=== PATIENT | female | born 1985 | race Two or more races ===

== ENCOUNTER 2021-12-11 04:14 | Day surgery (SDC) | payer OTHER ==
[2021-12-07 10:46] VITALS: BMI 31.2
[2021-12-11 09:41] LABS: BASO % 0.3 % (0-2.0); HEMATOCRIT 36.2 % (32.4-45.2); LYMPH % 27.5 % (8-40); MCH 27.6 pg (25.7-33.7); MCHC 33.2 g/dl (32.0-36.0); MEAN CELL VOLUME 83.1 fl (80-96); MEAN PLT VOLUME 7.3 fl (7.5-11.1); MONO % 6.1 % (3.8-10.2); NEUT % 65.1 % (42.8-82.8); PLATELET COUNT 268 10^3/uL (134-434); RBC 4.35 M/mm3 (3.60-5.2); RDW 13.7 % (11.6-15.6); WHITE BLOOD COUNT 8.2 K/mm3 (4.0-10.0)
[2021-12-11] MEDS ORDERED: INDOMETHACIN 50 MG CAPSULE PO ONE ×2 (13:15→13:35)
[2021-12-11] MEDS ORDERED: ONDANSETRON 4 MG/2 ML VIAL IVPUSH PRN (13:19)
[2021-12-11] MEDS ORDERED: ACETAMINOPHEN 1000 MG/100 ML BAG IVPB PRN (13:21)
[2021-12-11 15:02] VITALS: BP 110/73; PULSE 68; TEMP 97
== END 2021-12-11 19:15 | disposition home or self-care (01) ==
LOC: JASU-SURG 04:14
PROVIDERS: ATTEND Obstetrics & Gynecology Maternal & Fetal Medicine
PROC: 0UVC7ZZ Restriction of Cervix, Via Natural or Artificial Opening (ICD-10-PCS; principal; 2021-12-11 09:00)
DX: O34.31 Maternal care for cervical incompetence, first trimester (principal); Z3A.12 12 weeks gestation of pregnancy
CPT/HCPCS: 36415; 85025; 94760

== ENCOUNTER 2022-05-23 13:10 | Inpatient (IN) | payer OTHER ==
[2022-05-23 14:13] VITALS: BMI 36.6
[2022-05-23] MEDS ORDERED: BETAMET ACET/BETAMET NA PH 30 MG/5 ML VIAL ONE (14:34)
[2022-05-23] MEDS ORDERED: MAGNESIUM 4GM/H20 - 4 GM/100 ML IVPB IVPB ONE ×2 (14:35→14:40)
[2022-05-23 14:58] LABS: BASO % 0.3 % (0-2.0); EOS % 0.6 % (0-4.5); HEMATOCRIT 35.1 % (32.4-45.2); HEMOGLOBIN 12.1 GM/dL (10.7-15.3); LYMPH % 23.6 % (8-40); MCH 27.9 pg (25.7-33.7); MCHC 34.3 g/dl (32.0-36.0); MEAN CELL VOLUME 81.4 fl (80-96); MEAN PLT VOLUME 8.1 fl (7.5-11.1); NEUT % 67.5 % (42.8-82.8); PLATELET COUNT 249 10^3/uL (134-434); RBC 4.32 M/mm3 (3.60-5.2); RDW 13.9 % (11.6-15.6); WHITE BLOOD COUNT 9.7 K/mm3 (4.0-10.0)
[2022-05-23] MEDS ORDERED: MAGNESIUM SULFATE 20GM/500ML - 20 GM/500 ML INFUS.BAG ONE (15:05)
[2022-05-23] MEDS ORDERED: MAGNESIUM SULFATE 20GM/500ML - 20 GM/500 ML INFUS.BAG IVPB ONE ×2 (15:10→17:50)
[2022-05-23 15:14] LABS: ACTIVATED PTT 28.1 SECONDS (25.2-36.5); INR 1.03 (0.83-1.09); PROTHROMBIN TIME (PATIENT) 11.8 SEC (9.7-13.0)
[2022-05-23 15:17] LABS: BLOOD UREA NITROGEN 10.8 mg/dL (7-18); CALCIUM 8.4 mg/dL (8.5-10.1)
[2022-05-23 15:20] LABS: CREATININE 0.3 mg/dL (0.55-1.3)
[2022-05-23] MEDS ORDERED: BETAMET ACET/BETAMET NA PH 30 MG/5 ML VIAL IM ONE (17:15)
[2022-05-23] MEDS ORDERED: ELECTROLYTE-148 SOLN 1,000 ML IV SCH (17:50)
[2022-05-24] MEDS ORDERED: MAGNESIUM SULFATE 20GM/500ML - 20 GM/500 ML INFUS.BAG ONE (01:13)
[2022-05-24] MEDS ORDERED: MAGNESIUM 2GM/50ML STERILE WATER IVPB IVPB ONE (02:14)
[2022-05-24 12:30] VITALS: TEMP 97.9
[2022-05-24 14:13] VITALS: BP 103/54; PULSE 78
[2022-05-24] MEDS ORDERED: BETAMET ACET/BETAMET NA PH 30 MG/5 ML VIAL IM ONE (15:00)
== END 2022-05-24 15:13 | disposition home or self-care (01) | DRG 566 ==
LOC: JDEL 13:10 → JLDR 13:20
PROVIDERS: ADMIT Obstetrics & Gynecology Maternal & Fetal Medicine; ATTEND Obstetrics & Gynecology Maternal & Fetal Medicine
DX: O46.8X3 Other antepartum hemorrhage, third trimester (principal); Z3A.35 35 weeks gestation of pregnancy
CPT/HCPCS: 36415; 80048; 85025; 85610; 85730; 86780; 86850; 86900; 86901; 87086; 96372; C9803-CS; U0003; U0005

== ENCOUNTER 2022-06-04 08:20 | Inpatient (IN) | payer OTHER ==
[2022-06-04 09:31] VITALS: BMI 36.6
[2022-06-04] MEDS ORDERED: CITRIC ACID/SODIUM CITRATE 30 ML UNIT-DOSE CUP PO ONE (10:52)
[2022-06-04] MEDS ORDERED: DEXTROSE 5%-LACTATED RINGERS 1,000 ML IV SCH (11:00)
[2022-06-04] MEDS ORDERED: morphine SULFATE/PF 1 MG/2 ML (2cc Syringe - QUVA) ONE (11:10)
[2022-06-04] MEDS ORDERED: KETOROLAC TROMETHAMINE 30 MG/1 ML VIAL ONE (12:11)
[2022-06-04] MEDS ORDERED: ceFAZolin SODIUM 1 GM VIAL ONE (12:11)
[2022-06-04] MEDS ORDERED: ONDANSETRON 4 MG/2 ML VIAL ONE (12:11)
[2022-06-04] MEDS ORDERED: OXYTOCIN 10 UNITS/ML VIAL ONE ×2 (12:11→13:01)
[2022-06-04] MEDS ORDERED: PHENYLEPHRINE HCL 10 MG/1 ML SINGLE DOSE VIAL ONE (12:11)
[2022-06-04] MEDS ORDERED: MIDAZOLAM HCL 2 MG/2 ML SINGLE DOSE VIAL ONE (12:45)
[2022-06-04] MEDS ORDERED: KETAMINE HCL 500 MG/10 ML VIAL ONE (12:57)
[2022-06-04] MEDS ORDERED: ONDANSETRON 4 MG/2 ML VIAL IVPUSH PRN (13:53)
[2022-06-04] MEDS ORDERED: morphine SULFATE/PF 1 MG/2 ML (2cc Syringe - QUVA) IT ONE (13:53)
[2022-06-04] MEDS ORDERED: ACETAMINOPHEN 1000 MG/100 ML BAG IVPB ONE (13:54)
[2022-06-04] MEDS: OXYTOCIN 20 UNITS in 0.9% NS 20 UNIT/1,000 ML INFUS.BAG IV SCH ×2 (14:00→20:54)
[2022-06-04] MEDS ORDERED: OXYTOCIN 20 UNITS in 0.9% NS 20 UNIT/1,000 ML INFUS.BAG IV ONE (14:49)
[2022-06-04] MEDS: IBUPROFEN 600 MG TABLET (FP) PO PRN (21:08)
[2022-06-04] MEDS: SIMETHICONE 80 MG TAB.CHEW (FP) PO PRN (21:08)
[2022-06-04] MEDS: FERROUS SO4 325 MG TABLET (FP) PO SCH (22:00)
[2022-06-05 00:52] VITALS: RESP 18
[2022-06-05] MEDS: SIMETHICONE 80 MG TAB.CHEW (FP) PO PRN ×4 (01:49→21:47)
[2022-06-05] MEDS: IBUPROFEN 600 MG TABLET (FP) PO PRN ×4 (01:49→21:47)
[2022-06-05] MEDS: oxyCODONE HCL 5 MG TABLET PO PRN (05:05)
[2022-06-05 08:40] LABS: BASO % 0.3 % (0-2.0); EOS % 0.6 % (0-4.5); HEMATOCRIT 30.3 % (32.4-45.2); HEMOGLOBIN 10.6 GM/dL (10.7-15.3); LYMPH % 17.3 % (8-40); MCH 28.5 pg (25.7-33.7); MCHC 34.9 g/dl (32.0-36.0); MEAN CELL VOLUME 81.6 fl (80-96); MEAN PLT VOLUME 8.1 fl (7.5-11.1); NEUT % 75.8 % (42.8-82.8); PLATELET COUNT 194 10^3/uL (134-434); RBC 3.71 M/mm3 (3.60-5.2); RDW 13.9 % (11.6-15.6); WHITE BLOOD COUNT 9.2 K/mm3 (4.0-10.0)
[2022-06-05] MEDS: PRENATAL VITAMINS W/ FOLIC ACID TABLET (FP) PO SCH (10:07)
[2022-06-05] MEDS: FERROUS SO4 325 MG TABLET (FP) PO SCH ×2 (10:07→21:47)
[2022-06-06] MEDS: IBUPROFEN 600 MG TABLET (FP) PO PRN ×3 (03:33→16:25)
[2022-06-06] MEDS: SIMETHICONE 80 MG TAB.CHEW (FP) PO PRN ×4 (03:33→21:34)
[2022-06-06] MEDS: PRENATAL VITAMINS W/ FOLIC ACID TABLET (FP) PO SCH (09:31)
[2022-06-06] MEDS: FERROUS SO4 325 MG TABLET (FP) PO SCH ×2 (09:31→21:34)
[2022-06-06] MEDS: oxyCODONE HCL 5 MG TABLET PO PRN (21:35)
[2022-06-07] MEDS: IBUPROFEN 600 MG TABLET (FP) PO PRN ×3 (03:29→20:27)
[2022-06-07 09:20] LABS: BASO % 0.8 % (0-2.0); EOS % 3.9 % (0-4.5); HEMATOCRIT 28.7 % (32.4-45.2); HEMOGLOBIN 9.8 GM/dL (10.7-15.3); LYMPH % 29.9 % (8-40); MCH 27.9 pg (25.7-33.7); MCHC 34.2 g/dl (32.0-36.0); MEAN CELL VOLUME 81.6 fl (80-96); MEAN PLT VOLUME 8.8 fl (7.5-11.1); NEUT % 58.4 % (42.8-82.8); PLATELET COUNT 132 10^3/uL (134-434); RBC 3.52 M/mm3 (3.60-5.2); RDW 13.8 % (11.6-15.6); WHITE BLOOD COUNT 8.5 K/mm3 (4.0-10.0)
[2022-06-07] MEDS: FERROUS SO4 325 MG TABLET (FP) PO SCH ×2 (10:02→21:17)
[2022-06-07] MEDS: PRENATAL VITAMINS W/ FOLIC ACID TABLET (FP) PO SCH (10:02)
[2022-06-07] MEDS: SIMETHICONE 80 MG TAB.CHEW (FP) PO PRN (20:27)
[2022-06-08] MEDS: SIMETHICONE 80 MG TAB.CHEW (FP) PO PRN ×2 (02:01→11:17)
[2022-06-08] MEDS: IBUPROFEN 600 MG TABLET (FP) PO PRN ×2 (02:01→11:17)
[2022-06-08] MEDS: PRENATAL VITAMINS W/ FOLIC ACID TABLET (FP) PO SCH (09:46)
[2022-06-08] MEDS: FERROUS SO4 325 MG TABLET (FP) PO SCH (09:46)
[2022-06-08 09:50] VITALS: BP 119/76; PULSE 78; TEMP 98.3
== END 2022-06-08 16:50 | disposition home or self-care (01) | DRG 540 ==
LOC: JLDR 08:20 → J3W 15:05
PROVIDERS: ADMIT Obstetrics & Gynecology Maternal & Fetal Medicine; ATTEND Obstetrics & Gynecology Maternal & Fetal Medicine
PROC: 10D00Z1 Extraction of Products of Conception, Low, Open Approach (ICD-10-PCS; principal; 2022-06-04)
PROC: 0UCC0ZZ Extirpation of Matter from Cervix, Open Approach (ICD-10-PCS; 2022-06-04)
DX: O34.211 Maternal care for low transverse scar from previous cesarean delivery (principal); N85.8 Other specified noninflammatory disorders of uterus; O99.214 Obesity complicating childbirth; O34.33 Maternal care for cervical incompetence, third trimester; Z3A.37 37 weeks gestation of pregnancy; Z37.0 Single live birth
CPT/HCPCS: 36415; 85025; 88307-TC